=== PATIENT | female | born 1955 | race Two or more races ===

== ENCOUNTER 2024-06-30 10:14 | Emergency (ER) | payer OTHER, SELFPAY ==
[2024-06-30 10:34] VITALS: BP 113/66; PULSE 65; RESP 18; TEMP 36.6; O2SAT 98; BMI 32.3
--- NOTE | 2024-06-30 10:48 | CRLHL7_ITS ---
For Patients: As a result of the Cures Act, medical imaging exams and procedure reports are released immediately into your electronic medical record. You may view this report before your referring provider. If you have questions, please contact your health care provider. Indication: Fall Technique: Left humerus radiographs, three views Comparison: None. Findings: Bones: Oblique fracture of the midshaft of the humerus with mild displacement and apex radial angulation. Joint spaces: Mild acromioclavicular joint osteoarthritis. Soft tissues: Unremarkable. Impression: Oblique fracture of the midshaft of the humerus with mild displacement and apex radial angulation. Dictated by Tara Birch MD @ 06/30/2024 11:47:57 AM (Electronically Signed)
--- NOTE | 2024-06-30 10:50 | ED_ITS ---
HPI - General Adult General Chief complaint: Extremity Pain/Injury, Upper Stated complaint: Fell, hurt left arm Time Seen by Provider: 06/30/24 10:45 History of Present Illness HPI narrative: Patient is a 69-year-old woman who slipped on the ice today [place] a local rest. Is she and her family were traveling. She fell on her outstretched left arm and heard a snap in the proximal arm. She did not lose consciousness. She did not hit her head. She has no neck pain. She has had no nausea no vomiting no fevers no chills no chest pain no shortness of breath. She does have type 2 diabetes which is diet metformin controlled. She has had no bruising or ecchymosis but has obvious swelling in the proximal left humerus. Related Data Home Medications ?Medication ?Instructions ?Recorded ?Confirmed insulin admin suppl. w/lancets 06/30/24 06/30/24 metformin 1,000 mg tablet 1,000 mg PO BID 06/30/24 06/30/24 Previous Rx's ?Medication ?Instructions ?Recorded hydrocodone 5 mg-acetaminophen 325 1 tab PO Q8H PRN pain #20 tabs 06/30/24 mg tablet Allergies Allergy/AdvReac Type Severity Reaction Status Date / Time No Known Drug Allergies Allergy Verified 06/30/24 10:33 Review of Systems Status of ROS: Reports: 10 or more systems reviewed and unremarkable except as noted in History and below [facility] Medical History Diabetes mellitus ?E11.9 - Type 2 diabetes mellitus without complications (ICD-10) Social History Smoking Status: Current some day smoker What tobacco products do you use: cigarettes How often do you have a drink containing alcohol: never AUDIT-C Alcohol total score: 0 Non-prescribed substance use: denies use Exam Narrative: Exam Narrative: EXAM GENERAL: Patient appears to be very uncomfortable and crying. EYES: No scleral icterus. LYMPH: No supraclavicular or cervical lymphadenopathy. SKIN: Visible skin seen during exam normal or with benign process only. EXT: Obviously shortened and malpositioned proximal left arm. HEART: Regular rate and rhythm with no murmurs, rubs, or gallops. LUNGS: Clear to auscultation bilaterally with no crackles or wheezes. ABD: Soft, non tender, non distended. PSYCH: Good eye contact, speech is not pressured. Const: Vital Signs, click to edit/add: Vital Signs - 24 hr 06/30/24 10:34 Temperature 97.9 F Pulse Rate [Pulse Oximeter] 65 Respiratory Rate 18 Blood Pressure [Ri ght Upper Arm] 113/66 Pulse Oximetry 98 Oxygen Delivery Me thod Room Air Course Course ED Course: Patient given Percocet 1 tablet and will have a x-ray left shoulder. Reevaluation(s) Reevaluation #1: Patient has a midshaft left humerus fracture. Vital Signs Vital signs: Initial Vital Signs Temperature 97.9 F 06/30/24 10:34 Temperature Source Temporal Artery Scan 06/30/24 10:34 Pulse Rate 65 06/30/24 10:34 Pulse Rhythm Regular 06/30/24 10:34 Respiratory Rate 18 06/30/24 10:34 Blood Pressure 113/66 06/30/24 10:34 Blood Pressure Mean 81 06/30/24 10:34 Blood Pressure Position Sitting 06/30/24 10:34 Pulse Oximetry 98 06/30/24 10:34 Oxygen Delivery Method Room Air 06/30/24 10:34 Vital Signs Temperature 97.9 F 06/30/24 10:34 Pulse Rate 65 06/30/24 10:34 Respiratory Rate 18 06/30/24 10:34 Blood Pressure 113/66 06/30/24 10:34 Pulse Oximetry 98 06/30/24 10:34 Oxygen Delivery Method Room Air 06/30/24 10:34 Temperature 97.9 F 06/30/24 10:34 Pulse Rate 65 06/30/24 10:34 Respiratory Rate 18 06/30/24 10:34 Blood Pressure 113/66 06/30/24 10:34 Pulse Oximetry 98 06/30/24 10:34 Oxygen Delivery Method Room Air 06/30/24 10:34 Medications Administered Medications: Discontinued Medications Generic Name Dose Route Start Last Admin Trade Name Freq PRN Reason Stop Dose Admin Oxycodone/Acetaminophen 1 tab 06/30/24 10:49 06/30/24 11:09 Oxycodone/Apap 5-325 Tablet PO 06/30/24 10:50 1 tab ONCE ONE Administration Medical Decision Making MDM Narrative Medical decision making narrative: Patient is a 69-year-old woman who fell today on the ice a injuring her left arm. She does have a midshaft partially displaced and angulated mid humerus fracture. I did visit with Orthopedics and they did recommend sling with outpatient follow-up. Patient also carefully examined and I do not see any other injuries. She did not hit her head no loss of consciousness. I did pres cribe Vicodin 1-2 every 4-6 as needed ice and follow-up with orthopedics in 3-5 days. Discharge Plan Discharge Clinical Impression: Fracture, humerus Patient Disposition: Home w/ Parent or Adult Condition: Stable Instructions: Arm Fracture in Adults (ED) Additional Instructions: Sling as directed Ice Follow-up with orthopedics in 3-5 days. [place] for pain Ibuprofen Rest Prescriptions: New hydrocodone-acetaminophen 5-325 mg tablet 1 tab PO Q8H PRN (Reason: pain) Qty: 20 0RF No Action metformin 1,000 mg tablet 1,000 mg PO BID (DME) insulin admin suppl. w/lancets .ROUTE Follow Up/Referrals: Provider,Not a Local [Primary Care Provider] - Stand Alone Forms: [employer] Info Instructions
[2024-06-30] MEDS: OxyCODONE/APAP 5-325 TABLET 1 TAB PO (11:09)
== END 2024-06-30 11:51 | disposition home or self-care (01) ==
PROVIDERS: Emergency Provider Internal Medicine
DX: S42.302A Unspecified fracture of shaft of humerus, left arm, initial encounter for closed fracture (principal); W00.0XXA Fall on same level due to ice and snow, initial encounter; Y93.89 Activity, other specified; Y92.89 Other specified places as the place of occurrence of the external cause
CPT/HCPCS: 73060; 99283; 99284; A9270